=== PATIENT | male | born 1970 | race Caucasian/White ===

== ENCOUNTER 2016-07-28 21:49 | Emergency (ER) | payer OTHER ==
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
[~2016-07-28 21:49] MED LIST: CIPRO PO; FLAGYL PO; FLEXERIL10 MG PO; IBUPROFEN800 MG PO; LEVAQUIN PO; LORTAB 10-5001 EACH PO; MEDROL4 MG/DOSE- PO; TYLENOL #3 PO; VOLTAREN50 MG PO
[2016-07-28] MEDS ORDERED: FLEXERIL10 MG PO (23:07)
[2016-07-28] MEDS ORDERED: MOBIC15 MG PO (23:07)
== END 2016-07-28 23:07 | disposition home or self-care (01) ==
LOC: SED 21:49
DX: S13.4XXA Sprain of ligaments of cervical spine, initial encounter (principal); S33.5XXA Sprain of ligaments of lumbar spine, initial encounter; V43.92XA Unspecified car occupant injured in collision with other type car in traffic accident, initial encounter; Y92.410 Unspecified street and highway as the place of occurrence of the external cause
CPT/HCPCS: 72040; 72100; 99284